=== PATIENT | female | born 2000 | race Caucasian/White ===

== ENCOUNTER 2024-05-01 12:00 | Outpatient (CLI) | payer MEDICAID, SELFPAY ==
[2024-05-01 13:04] LABS: Microscopic, Urine URINE MICROSCOPIC (MICROSCOPIC)
[2024-05-01 13:16] LABS: Appearance,Urine CLEAR (Clear); Basophils % 0.7 % (0.1-2.0); Bilirubin,Urine Negative (Negative); Blood, Urine 1+ (Negative); Color,Urine YELLOW (Yellow); Eosinophils % 0.5 % (0.1-12.0); Glucose,Urine (UA) Negative (Negative); Hematocrit 37.8 % (37.0-47.0); Ketones,Urine Negative (Negative); Leukocyte Esterase,Urine Negative (Negative); Lymphocytes # 1.1 K/mm3 (0.7-4.5); Mean Corpuscular HGB Conc 31.7 g/dL (31.8-35.4); Mean Corpuscular Hemoglobin 23.6 pg (27.0-31.2); Mean Corpuscular Volume 74.3 fl (81-99); Mean Platelet Volume 10.7 fl (7.4-10.4); Monocytes # 0.3 K/mm3 (0.1-1.0); Monocytes % 6.2 % (1.7-9.3); Neutrophils # 2.9 K/mm3 (1.8-7.8); Neutrophils % 67.4 % (37.0-80.0); Nitrate,Urine Negative (Negative); Platelet Count 244 K/mm3 (142-424); Protein,Urine Negative (Negative); Red Blood Count 5.09 M/mm3 (4.20-5.40); Red Cell Distribution Width 15.5 % (11.5-17.5); Specific Gravity, Urine >= 1.030 (1.005-1.030); Urobilinogen,Urine 0.2 EU/dl (0.2); White Blood Count 4.4 K/mm3 (4.8-10.8)
[2024-05-01 13:29] LABS: RBC,Urine Occasional #/hpf (0-3); Squamous Epithelial Cell,Urine 20-50 #/hpf (0-5)
[2024-05-01 13:30] LABS: Bacteria,Urine 3+ /lpf; Mucus,Urine Trace /lpf
[2024-05-01 13:56] LABS: Albumin Level 4.7 g/dl (3.5-5.0); Chloride 108 mmol/L (98-107); Potassium 4.4 mmoL/L (3.5-5.1); Sodium 141 mmol/L (136-145)
[2024-05-01 13:59] LABS: Alanine Aminotransferase 13 U/L (12-78); Alkaline Phosphatase 81 U/L (38-126); Anion Gap 16.4 mEq/L (5-15); Aspartate Amino Transferase 18 U/L (14-36); Bilirubin,Total 0.3 mg/dl (0.2-1.3); Blood Urea Nitrogen 11 mg/dl (7-17); Calcium 9.5 mg/dl (8.4-10.2); Carbon Dioxide 21 mmol/L (22.0-30.0); Cholesterol 169 mg/dl (140-200); Estimated Glomerular Filt Rate 105 ml/min (>60); GFR (African American) 127 ML/MIN (>60); Globulin 2.4 g/dL (1.3-3.2); Glucose 94 mg/dl (74-100); HDL Cholesterol 34 mg/dl (40-60); Iron 84 ug/dL (37-170); Total Protein,Serum 7.1 g/dl (6.3-8.2); Triglycerides 101 mg/dl (30-150); VLDL Cholesterol 20 mg/dL (0-40)
[2024-05-01 14:13] LABS: Direct LDL Cholesterol 104.29 mg/dL (100-129)
[2024-05-01 14:16] LABS: Total Iron Binding Capacity 484 ug/dL (265-497)
[2024-05-01 14:20] LABS: Free T4 (Free Thyroxine) 0.99 ng/dl (0.78-2.19)
[2024-05-01 14:27] LABS: Hemoglobin A1C 5.1 % (4.0-6.0)
[2024-05-01 14:32] LABS: Thyroid Stimulating Hormone 3.24 uIU/mL (0.465-4.68)
[2024-05-01 14:36] LABS: Ferritin 6.49 ng/ml (6.24-137)
[2024-05-01 14:52] LABS: Hepatitis C Ab Qual. W/ RFX NEGATIVE (Negative)
[2024-05-01 15:54] LABS: HIV Combo NEGATIVE (Negative)
[2024-05-01 15:55] LABS: Vitamin B12 284 pg/mL (239-931)
[2024-05-01 18:50] LABS: 25-OH Vitamin D, Total 18.9 ng/mL (30-100)
== END 2024-05-01 23:59 | disposition home or self-care (01) ==
LOC: LAB.DROPOF 05-02 09:23
PROVIDERS: PCP Nurse Practitioner Family; Visit Provider Nurse Practitioner Family
DX: Z00.00 Encounter for general adult medical examination without abnormal findings (principal); Z76.89 Persons encountering health services in other specified circumstances; Z11.59 Encounter for screening for other viral diseases; Z11.4 Encounter for screening for human immunodeficiency virus [HIV]; E55.9 Vitamin D deficiency, unspecified; Z68.31 Body mass index [BMI] 31.0-31.9, adult; E66.9 Obesity, unspecified
CPT/HCPCS: 80053; 80061; 81001; 82306; 82607; 82728; 83036; 83540; 83550; 84439; 84443; 85025; 86803; 87086; 87389